=== PATIENT | female | born 1960 | race Caucasian/White ===

== ENCOUNTER 2016-08-10 06:29 | Observation (INO) | payer BC ==
[2016-08-08 16:00] LABS: BASOPHILS 0.5 %; BASOPHILS ABSOLUTE 0.07 10/3/uL (0.0-0.16); EOSINOPHILS 4.1 %; EOSINOPHILS ABSOLUTE 0.61 10/3/uL (0.0-0.53); HEMATOCRIT 37.5 % (36.0-48.0); HEMOGLOBIN 12.5 g/dL (12.0-16.0); IMMATURE GRANULOCYTES 0.9 %; IMMATURE GRANULOCYTES ABSOLUTE 0.14 10/3/uL (0.0-0.11); LYMPHOCYTES 29.1 %; LYMPHOCYTES ABSOLUTE 4.34 10/3/uL (0.67-4.30); MEAN CORPUS HGB CONC 33.3 g/dL (32.0-36.0); MEAN CORPUSCULAR VOLUME 84.1 fL (80-100); MEAN PLATELET VOLUME 10.3 fL (9.2-13.0); MONOCYTES ABSOLUTE 0.89 10/3/uL (0.21-1.20); NEUTROPHILS 59.4 %; NEUTROPHILS ABSOLUTE 8.87 10/3/uL (2.02-8.40); PLATELET COUNT 371 10/3/uL (150-400); RBC DISTRIBUTION WIDTH 13.7 % (12.0-16.0); RED CELL COUNT 4.46 10/6/uL (4.0-5.6); WHITE BLOOD CELLS 14.9 10/3/uL (4.5-10.5)
[2016-08-08 16:01] LABS: MANUAL DIFF NO %
[2016-08-08 16:49] LABS: BUN (BLOOD UREA NITROGEN) 22 MG/DL (6-23); CA 125 II 9.7 U/ML (< 35.0); CHLORIDE, SERUM 102 MMOL/L (96-112); CO2 (CARBON DIOXIDE) 28 MMOL/L (24-34); CREATININE 1.01 MG/DL (0.55-1.02); GFR AFRICAN AMERICAN 72 ML/MIN (>=60); GFR NON AFRICAN AMERICAN 62 ML/MIN (>=60); GLUCOSE, SERUM 147 MG/DL (60-99); POTASSIUM, SERUM 4.2 MMOL/L (3.5-5.3); SODIUM, SERUM 138 MMOL/L (135-148)
--- NOTE | ~2016-08-10 | OP ---
Record Of Operation [facility] [address] [place]. [address] NAME: JOHNATHON VEGA : 58 STATUS : ADM Sandra PAT#: [id number] AGE: 56 ADM/REG DATE : 08/10/16 MR#: [id number] REPORT SERV DATE: 08/10/16 DICTATED BY: JOHN CHOW DATE: 08/10/16 REPORT STATUS : Draft TRANSCRIBED BY: MODKarin DATE: 08/10/16 DATE OF PROCEDURE: 08/10/2016 PREOPERATIVE DIAGNOSIS: Grade 1 endometrial carcinoma. POSTOPERATIVE DIAGNOSIS: Grade 1 endometrial carcinoma. PROCEDURES: 1. Laparoscopic hysterectomy with bilateral salpingo-oophorectomy via the da Mike laparoscopic robotic instrument, CPT code 08702. 2. Pelvic lymph node dissection, CPT code 37756. 3. Extensive lysis of adhesions specifically around the bladder from a previous section, CPT code 00138 and injection of indocyanine green for sentinel lymph node identification, CPT code 86378. SURGEON: John Chow M.D. DATA COORDINATOR: Amrita. ESTIMATED BLOOD LOSS: 50 mL. FLUIDS IN: 1600 mL of crystalloid. URINE OUTPUT: 200 mL. ANESTHESIA: General endotracheal. INDICATIONS AND FINDINGS: This is a 56-year-old female, who presents with a biopsy consistent with grade 1 endometrial carcinoma. She was taken to the operating room for removal of the uterus. Intraoperatively, there was no gross evidence of tumor outside the uterus. The patient had a previous section and the uterus was adherent to the anterior abdominal wall. The bladder was also adherent to the anterior abdominal wall. This required extensive lysis of adhesions. The bladder was filled to ensure that there was no leak during the laparoscopic procedure. The lysis of adhesions required greater than 50% of the entire operative time to remove. The uterus was removed intact and examined on the back table. Additional lymph nodes were also sent that appeared to be abnormal during the pelvic lymph node dissection. Postprocedure, a cystoscopy was performed with excellent bilateral ureteral jets. No evidence of bladder defect. Prior to the induction of anesthesia, the patient was given Lovenox for DVT prophylaxis. She was also given prophylactic antibiotics. PROCEDURE IN DETAIL: The patient was taken to the operating room. She was placed in supine position for administration of general anesthesia. She was then placed in dorsal lithotomy position and prepped and draped in the usual sterile fashion. The cervix was easily visualized. It was injected with approximately 3 mL of indocyanine green at the 3 and 9 o'clock positions. A FARHEEN uterine manipulator was placed through the uterine cervix and out Record Of Operation [place] [id number] [facility] [place]. [address] NAME: JOHNATHON VEGA : 58 STATUS : ADM Sandra PAT#: [id number] AGE: 56 ADM/REG DATE : 08/10/16 MR#: [id number] REPORT SERV DATE: 08/10/16 DICTATED BY: JOHN CHOW DATE: 08/10/16 REPORT STATUS : Draft TRANSCRIBED BY: MODL DATE: 08/10/16 the fundus, and a DEJAH ring was sutured to the patient's cervix. Our attention was then turned towards the anterior abdominal wall, where an incision was made approximately 27 cm above the pubic symphysis and taken down to the underlying layer of fascia. The fascia was grasped with two sutures of 0 Vicryl, tented up, entered sharply. The peritoneum was then tented up and entered sharply, and a laparoscopic trocar was placed under direct visualization. The abdominal cavity was insufflated. Two additional 8-mm trocars were placed, one additional 12-mm trocar was placed. The patient was then docked to the laparoscopic robotic instrument and the remainder of the procedure was performed via the da Mike. There was a portion of the omentum that was adherent to the anterior abdominal wall as were the bladder and uterus. This required extensive lysis of adhesions, again which incorporated greater than 50% of the entire operative time to remove. This lysis of adhesions was accomplished sharply and cautery was used for hemostasis. Once the adhesions were adequately displaced, the retroperitoneal spaces were opened. The ureter and pelvic vessels were clearly identified. The gonadal vessels were isolated. Hemoclips were placed to ensure long-term hemostasis. They were then coagulated and transected bilaterally. The uterine arteries were identified at their origin and hemoclips were placed to ensure long- term hemostasis. Using firefly technology, sentinel lymph nodes were identified within the boundaries of the circumflex iliac vein anteriorly, posteriorly to the obturator nerve, laterally to the general femoral nerve, and medially to the superior vesical artery. All these structures were clearly identified and spared bilaterally. The lymphatic tissue within these boundaries was removed again using firefly technology. Certain lymph nodes were identified as sentinel lymph nodes. Other lymph nodes were just sent as additional lymph nodes. Once lymph node dissection was complete, additional lysis of adhesions was undertaken. Again, the bladder was backfilled to ensure there was no injury and to further delineate the bladder. The uterine artery was then skeletonized at the level of the cervix. The bladder was taken from the uterus with sharp dissection. The uterosacral cardinal complex was then taken down with unipolar cautery and a circumferential incision was made around the cervix and vagina, and the uterus, tubes, ovaries, and cervix were delivered through the vagina with the above findings noted. The vaginal cuff was then closed using a running stitch of #1 PDS V-Loc. All pedicles were inspected and found to be hemostatic. The laparoscopic instruments were removed. The gas was expelled from the abdomen. The initial incision was closed with 0 Vicryl at the fascia. The remainder of the incisions were closed with 4-0 Vicryl at the skin and Dermabond was placed. Postprocedure, a cystoscopy was performed with excellent bilateral ureteral jets. No evidence of bladder defect. At the completion of the procedure, the anesthesia was reversed. The patient was extubated and brought to the recovery room in stable condition. SD/MODL John Chow M.D. / [id number] CC: Record Of Operation [address] [address] NAME: JOHNATHON VEGA : 58 STATUS : ADM Sandra PAT#: [id number] AGE: 56 ADM/REG DATE : 08/10/16 MR#: [id number] REPORT SERV DATE: 08/10/16 DICTATED BY: JOHN CHOW DATE: 08/10/16 REPORT STATUS : Draft TRANSCRIBED BY: MODL DATE: 08/10/16 Andreas Olea M.D.
[~2016-08-10 06:29] MED LIST: CARDIZEM LA180 MG PO; GLUCOPHAGE1000 MG PO; HALF81 PO; JARDI25B PO; KOMBIGLYZE XR1 EAC1; LANTUS SC
[2016-08-10 07:18] LABS: BASOPHILS 0.5 %; BASOPHILS ABSOLUTE 0.05 10/3/uL (0.0-0.16); EOSINOPHILS 5.7 %; EOSINOPHILS ABSOLUTE 0.55 10/3/uL (0.0-0.53); HEMATOCRIT 39.7 % (36.0-48.0); HEMOGLOBIN 13.2 g/dL (12.0-16.0); IMMATURE GRANULOCYTES 0.9 %; IMMATURE GRANULOCYTES ABSOLUTE 0.09 10/3/uL (0.0-0.11); LYMPHOCYTES 25.7 %; MEAN CORPUS HGB CONC 33.2 g/dL (32.0-36.0); MEAN CORPUSCULAR VOLUME 84.1 fL (80-100); MEAN PLATELET VOLUME 10.5 fL (9.2-13.0); MONOCYTES 7.6 %; MONOCYTES ABSOLUTE 0.74 10/3/uL (0.21-1.20); NEUTROPHILS 59.6 %; PLATELET COUNT 340 10/3/uL (150-400); RBC DISTRIBUTION WIDTH 13.8 % (12.0-16.0); RED CELL COUNT 4.72 10/6/uL (4.0-5.6); WHITE BLOOD CELLS 9.7 10/3/uL (4.5-10.5)
[2016-08-10 07:24] LABS: MANUAL DIFF NO %
[2016-08-11] MEDS ORDERED: PCET PO (12:21)
[2016-08-11] MEDS ORDERED: ZOFRANODT8 PO (12:23)
== END 2016-08-11 12:59 | disposition home or self-care (01) ==
LOC: SDC 06:29 → 4EA 17:29
PROVIDERS: Internal Medicine; Obstetrics & Gynecology Gynecologic Oncology
PROC: 0UT24ZZ Resection of Bilateral Ovaries, Percutaneous Endoscopic Approach (ICD-10-PCS; 2016-08-10)
PROC: 0UT74ZZ Resection of Bilateral Fallopian Tubes, Percutaneous Endoscopic Approach (ICD-10-PCS; 2016-08-10)
PROC: 07BC4ZZ Excision of Pelvis Lymphatic, Percutaneous Endoscopic Approach (ICD-10-PCS; 2016-08-10)
PROC: 0UT94ZZ Resection of Uterus, Percutaneous Endoscopic Approach (ICD-10-PCS; principal; 2016-08-10 09:00)
PROC: 0UTC4ZZ Resection of Cervix, Percutaneous Endoscopic Approach (ICD-10-PCS; 2016-08-10 09:00)
DX: C54.1 Malignant neoplasm of endometrium (principal); I10 Essential (primary) hypertension; E11.9 Type 2 diabetes mellitus without complications; E05.00 Thyrotoxicosis with diffuse goiter without thyrotoxic crisis or storm; E66.9 Obesity, unspecified; Z68.31 Body mass index [BMI] 31.0-31.9, adult; Z79.82 Long term (current) use of aspirin; Z79.4 Long term (current) use of insulin; Z79.84 Long term (current) use of oral hypoglycemic drugs; Z79.899 Other long term (current) drug therapy; Z87.891 Personal history of nicotine dependence; Z98.890 Other specified postprocedural states
CPT/HCPCS: 36415; 71020; 80048; 82962; 85025; 86304; 86850; 86900; 86901; 88112; 88305; 88307; 88309; 88341; 88342; 96372; 96374; 96376; A9270-GY; G0378; J0694; J1885; J2250; J2405; J2710; J2795; J3010